=== PATIENT | female | born 1940 | race Caucasian/White ===

== ENCOUNTER 2024-09-11 11:24 | Inpatient (IN) | payer MEDICARE, BC, OTHER ==
[~2024-09-11] VITALS: Ht 149.9 cm; Wt 62.5 kg
[2024-09-11] MEDS ORDERED: NITR-67 PO (11:40)
[2024-09-11 12:40] LABS: VENOUS BASE EXCESS 0.5 (-2.0-2.0); VENOUS HCO3 25.8 MMOL/L (23.0-27.0); VENOUS O2 SATURATION 52.8 % (60.0-80.0); VENOUS PARTIAL PRESSURE CO2 43.7 mmHg (38.0-50.0); VENOUS PARTIAL PRESSURE O2 28.6 mmHg (30.0-50.0); VENOUS PH 7.389 UNITS (7.330-7.430); VENOUS STANDARD HCO3 23.8 MMOL/L; VENOUS TOTAL CO2 27.1 MMOL/L (24.0-28.0)
[2024-09-11 12:45] LABS: BASO # 0.0 10^3/uL (0.0-0.2); BASO % 0.3 % (0.0-1.0); EOS # 0.0 10^3/uL (0.0-0.5); EOS % 0.4 % (0.0-3.0); LYMPH # 0.5 10^3/uL (1.5-5.0); LYMPH % 5.1 % (24.0-44.0); MONO # 0.6 10^3/uL (0.0-0.8); MONO % 6.0 % (2.0-8.0); NEUTROPHILS # 8.9 10^3/uL (1.5-8.5); NEUTROPHILS % 87.6 % (36.0-66.0); PLATELET COUNT, AUTOMATED 298 10^3/uL (150-450)
[2024-09-11] MEDS ORDERED: HOME MED LIST COMPLETE! XX SCH (13:00)
[2024-09-11 13:10] LABS: CK-MB VALUE MASS 1.5 NG/ML (<3.6)
[2024-09-11 13:11] LABS: APPEARANCE, URINE HAZY (CLEAR); BACTERIA, URINE AUTO NEGATIVE (NEGATIVE); BILIRUBIN, URINE AUTO NEGATIVE (NEGATIVE); BLOOD, URINE BLOOD NEGATIVE (NEGATIVE); GLUCOSE, URINE (UA) AUTO NEGATIVE (NEGATIVE); KETONE, URINE AUTO NEGATIVE (NEGATIVE); LEUKOCYTE ESTERASE, URINE AUTO NEGATIVE (NEGATIVE); MUCUS, URINE SMALL (NEGATIVE); NITRITE, URINE AUTO NEGATIVE (NEGATIVE); PROTEIN, URINE AUTO NEGATIVE (NEGATIVE); RBC, URINE AUTO 0 /HPF (0-3); SPECIFIC GRAVITY URINE AUTO 1.016 (1.002-1.035); SQUAMOUS EPITHELIAL CELL UR AU 6 /HPF (0-6); UROBILINOGEN, URINE AUTO 0.2 mg/dL (0.0-2.0); WBC, URINE AUTO 1 /HPF (0-3)
[2024-09-11 13:12] LABS: C REACTIVE PROTEIN QUANTITATIV 3.51 MG/DL (<1.0); CPK CREATINE PHOSPHOKINASE 109.0 U/L (34-145); MB/CK RELATIVE INDEX 1.37 (< OR =4)
[2024-09-11 13:13] LABS: ALT/SGPT 29.0 U/L (7.0-40); AST/SGOT 33.0 U/L (<34); CALCIUM LEVEL 9.5 MG/DL (8.3-10.6); CARBON DIOXIDE LEVEL 26.0 MMOL/L (20-31); CHLORIDE LEVEL 101.0 MMOL/L (98-107); CREATININE FOR GFR 0.72 MG/DL (0.55-1.30); GLOMERULAR FILTRATION RATE 84.0 (>32); POTASSIUM SERUM 4.2 MMOL/L (3.5-5.1); SODIUM LEVEL 138.0 MMOL/L (136-145)
[2024-09-11 13:15] LABS: INR 0.99
[2024-09-11] MEDS: ACETAMINOPHEN 325 MG TAB PO ONE (13:37)
[2024-09-11] MEDS: MEROPENEM 1 GM in IV 1 EA IV ONE (13:37)
[2024-09-11] MEDS: NS (Normal Saline) 0.9% 1,000 ML IV SCH (13:38)
[2024-09-11] MEDS: ENOXAPARIN 40 MG/0.4 ML SYRINGE (J1650 PER 10MG) SC SCH (16:20)
[2024-09-11 17:35] VITALS: BP 115/64; TEMP 97.3; O2SAT 97
[2024-09-11 19:38] VITALS: BP 121/68; TEMP 97.3; O2SAT 99
[2024-09-11] MEDS: DOXYCYCLINE HYCLATE 100 MG TABLET PO SCH (20:10)
[2024-09-11] MEDS: NITROFURANTOIN 100 MG CAP PO SCH (20:10)
[2024-09-11] MEDS ORDERED: DOXYCYCLINE HYCLATE 100 MG in DEXTROSE 5% (D5W) MINI-BAG PLU 100 ML IV SCH (21:00)
[2024-09-11 22:00] VITALS: BP 139/80; TEMP 97.9; O2SAT 92
[2024-09-12] VITALS (8 sets, daily range): BP systolic 107–133; BP diastolic 58–71; TEMP 93.7–101.4; O2SAT 92–98
[2024-09-12] MEDS: ACETAMINOPHEN 325 MG TAB PO PRN (06:05)
[2024-09-12 07:40] LABS: PLATELET COUNT, AUTOMATED 244 10^3/uL (150-450)
[2024-09-12 07:53] LABS: CALCIUM LEVEL 8.0 MG/DL (8.3-10.6); CARBON DIOXIDE LEVEL 24.0 MMOL/L (20-31); CHLORIDE LEVEL 104.0 MMOL/L (98-107); CREATININE FOR GFR 0.71 MG/DL (0.55-1.30); GLOMERULAR FILTRATION RATE 85.4 (>32); POTASSIUM SERUM 3.8 MMOL/L (3.5-5.1); SODIUM LEVEL 139.0 MMOL/L (136-145)
[2024-09-12] MEDS ORDERED: ISOVUE-370 76% 100 ML VIAL As Ordered ONE (10:00)
[2024-09-12] MEDS: BOOSTRIX VACCINE (TETANUS/DIPHTH/ACEL. PERTUSSIS) 0.5 ML SYR IM ONE (11:10)
[2024-09-12] MEDS: KETOROLAC 30 MG/ML 1 ML VIAL IV ONE (17:38)
[2024-09-12 19:32] LABS: KETONE, URINE AUTO RFX NEGATIVE (NEGATIVE); LEUKOCYTE ESTERASE UR AUTO RFX NEGATIVE (NEGATIVE); MUCUS, URINE RFX SMALL (NEGATIVE); NITRITE, URINE AUTO RFX NEGATIVE (NEGATIVE); RBC, URINE AUTO RFX 0 /HPF (0-3); SQUAM EPITHELIAL CELL UR AURFX 1 /HPF (0-6); WBC, URINE AUTO RFX 0 /HPF (0-3)
[2024-09-13 04:00] VITALS: BP 144/84; TEMP 99; O2SAT 100
[2024-09-13 06:45] VITALS: TEMP 98.3
[2024-09-13 11:56] VITALS: BP 149/83; TEMP 97.9; O2SAT 93
[2024-09-13] MEDS ORDERED: PROHANCE 279.3MG/ML 15ML VIAL As Ordered ONE (13:02)
[2024-09-13 16:30] VITALS: BP 152/84; TEMP 100; O2SAT 95
[2024-09-13] MEDS: diphenhydrAMINE 50 MG/ML VIAL IV STA (18:21)
[2024-09-13] MEDS: BACTRIM 160MG/800MG DS TAB PO SCH (18:30)
[2024-09-13 22:00] VITALS: BP 150/87; TEMP 98.2; O2SAT 96
[2024-09-14 06:00] VITALS: BP 149/86; TEMP 99; O2SAT 95
[2024-09-14 06:52] LABS: PLATELET COUNT, AUTOMATED 244 10^3/uL (150-450)
[2024-09-14 07:30] LABS: BASO # 0.0 10^3/uL (0.0-0.2); BASO % 0.2 % (0.0-1.0); EOS # 0.5 10^3/uL (0.0-0.5); EOS % 7.6 % (0.0-3.0); LYMPH # 1.2 10^3/uL (1.5-5.0); LYMPH % 17.9 % (24.0-44.0); MONO # 0.7 10^3/uL (0.0-0.8); MONO % 11.0 % (2.0-8.0); NEUTROPHILS # 4.1 10^3/uL (1.5-8.5); NEUTROPHILS % 63.0 % (36.0-66.0)
[2024-09-14 07:39] LABS: C REACTIVE PROTEIN QUANTITATIV 5.71 MG/DL (<1.0); CALCIUM LEVEL 8.6 MG/DL (8.3-10.6); CARBON DIOXIDE LEVEL 25.0 MMOL/L (20-31); CHLORIDE LEVEL 106.0 MMOL/L (98-107); CREATININE FOR GFR 0.65 MG/DL (0.55-1.30); GLOMERULAR FILTRATION RATE 88.4 (>32); POTASSIUM SERUM 3.5 MMOL/L (3.5-5.1); SODIUM LEVEL 143.0 MMOL/L (136-145)
[2024-09-14] MEDS ORDERED: ZYVO1TAB PO (10:45)
[2024-09-14] MEDS: LINEZOLID 600 MG TABLET PO ONE (11:42)
[2024-09-14 12:00] VITALS: BP 146/84; TEMP 97.6; O2SAT 96
[2024-09-14] MEDS ORDERED: BACT800T5 PO (12:37)
== END 2024-09-14 13:10 | disposition home or self-care (01) | DRG 603 ==
LOC: M ED 11:24 → M ED INP 11:25 → OBSVTOIN 17:15 → M MS5PR 17:26
PROVIDERS: ADMIT Internal Medicine; ATTEND Internal Medicine
DX: L03.115 Cellulitis of right lower limb (principal); N39.0 Urinary tract infection, site not specified; I35.0 Nonrheumatic aortic (valve) stenosis; J47.9 Bronchiectasis, uncomplicated; R50.9 Fever, unspecified; Z79.2 Long term (current) use of antibiotics; Z88.0 Allergy status to penicillin; Z88.1 Allergy status to other antibiotic agents; Z88.6 Allergy status to analgesic agent; Z88.5 Allergy status to narcotic agent; Z88.8 Allergy status to other drugs, medicaments and biological substances